=== PATIENT | male | born 1955 | race African-American/Black ===

== ENCOUNTER 2017-04-14 12:37 | Emergency (ER) | payer OTHER | END 2017-04-14 13:15 | disposition home or self-care (01) | LOC: CED 12:37 → CFTX 12:37 | DX: S76.911A Strain of unspecified muscles, fascia and tendons at thigh level, right thigh, initial encounter (principal); F17.210 Nicotine dependence, cigarettes, uncomplicated; I10 Essential (primary) hypertension; E78.5 Hyperlipidemia, unspecified; W22.8XXA Striking against or struck by other objects, initial encounter; Y92.009 Unspecified place in unspecified non-institutional (private) residence as the place of occurrence of the external cause | CPT/HCPCS: 99283 ==